=== PATIENT | male | born 1975 | race Caucasian/White ===

== ENCOUNTER 2019-07-02 11:42 | Emergency (ER) | payer OTHER ==
[~2019-07-02] VITALS: Ht 188 cm; Wt 110.0 kg
[2019-07-02] MEDS ORDERED: TETANUS, DIPHTHERIA, PERTUSSIS VAC/PF 0.5ML (>7YR OLD) IM ONE (12:45)
[2019-07-02] MEDS ORDERED: LIDOCAINE HCL 1% 20ML VIAL (Pyxis) INJ INFIL ONE (12:45)
[2019-07-02] MEDS ORDERED: IBUPROFEN 800MG TABLET PO ONE (12:45)
[2019-07-02 15:24] VITALS: BP 140/86
== END 2019-07-02 15:26 | disposition home or self-care (01) ==
LOC: ER 11:42
DX: S61.215A Laceration without foreign body of left ring finger without damage to nail, initial encounter (principal); F17.200 Nicotine dependence, unspecified, uncomplicated; W31.2XXA Contact with powered woodworking and forming machines, initial encounter; Y93.89 Activity, other specified; Y92.9 Unspecified place or not applicable
CPT/HCPCS: 73130; 90471; 90715; 99283; J3490; Z7610